=== PATIENT | male | born 1990 | race Caucasian/White ===

== ENCOUNTER 2018-02-01 20:47 | Observation (INO) | payer OTHER, BC ==
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
[2018-02-01] MEDS ORDERED: Sodium Chloride 0.9% 1,000 ML IV SCH ×2 (21:30→23:45)
--- NOTE | 2018-02-01 21:38 | PCM.PREANE ---
Preanesthetic Assessment - Procedure Proposed Procedure: Closed reduction Left Shoulder - Anesthesia/Transfusion/Family Hx Anesthesia History: Prior Anesthesia Without Reaction - Review of Systems General: No Symptoms Pulmonary: No Symptoms Cardiovascular: No Symptoms Gastrointestinal: No Symptoms Neurological: No Symptoms Other: Reports: None - Physical Assessment NPO Status Date: 02/01/18 NPO Status Time: 15:30 O2 Sat by Pulse Oximetry: 93 Respiratory Rate: 19 Vital Signs: Last Vital Signs Temp 97.4 F 02/01/18 20:57 Pulse 82 02/01/18 20:57 Resp 19 02/01/18 20:57 BP 134/75 02/01/18 20:57 Pulse Ox 93 L 02/01/18 20:57 Height: 1.78 m Weight: 106.594 kg ASA Class: 2E Mental Status: Alert & Oriented x3 Airway Class: Mallampati = 1 Dentition: Reports: Normal Dentition Thyro-Mental Finger Breadths: 3 Mouth Opening Finger Breadths: 3 Lungs: Clear to Auscultation Cardiovascular: Regular Rate - Lab Values: Laboratory Last Values WBC 15.15 K/mm3 (4.23-9.07) H 02/01/18 21:07 RBC 4.58 M/mm3 (4.63-6.08) L 02/01/18 21:07 Hgb 12.2 gm/L (13.7-17.5) L 02/01/18 21:07 Hct 37.4 % (40.1-51.0) L 02/01/18 21:07 MCV 81.7 fl (79.0-92.2) 02/01/18 21:07 MCH 26.6 pg (25.7-32.2) 02/01/18 21:07 MCHC 32.6 g/dl (32.2-35.5) 02/01/18 21:07 RDW Std Deviation 41.6 fL (35.1-43.9) 02/01/18 21:07 Plt Count 132 K/mm3 (163-337) L 02/01/18 21:07 MPV 12.3 fl (9.4-12.3) 02/01/18 21:07 - Allergies Allergies/Adverse Reactions: Allergies Allergy/AdvReac Type Severity Reaction Status Date / Time No Known Allergies Allergy Verified 02/01/18 21:04 - Acknowledgements Anesthesia Type Planned: MAC Pt an Appropriate Candidate for the Planned Anesthesia: Yes Alternatives and Risks of Anesthesia Discussed w Pt/Guardian: Yes Pt/Guardian Understands and Agrees with Anesthesia Plan: Yes PreAnesthesia Questionnaire Gastrointestinal History: Reports: GERD Endocrine/Metabolic History: Reports: Obesity/BMI 30+ - Past Surgical History HEENT Surgical History: Reports: Oral Surgery (wisdom teeth extraction) Musculoskeletal Surgical History: Reports: Amputation (left 4h toe), Arthroscopic Knee, Other (See Below) (Right knee arthroscope x 1, open x 2) - SUBSTANCE USE Smoking Status *Q: Current Every Day Smoker Tobacco Use Within Last Twelve Months: Smokeless Tobacco (Chews 1 can/day) Recreational Drug Use History: No - HOME MEDS Home Medications: Home Meds Omeprazole Magnesium [Prilosec Otc] 20 mg PO DAILY 02/01/18 [History] - CURRENT (IN HOUSE) MEDS Current Meds: Current Medications Sodium Chloride (Normal Saline) 1,000 mls @ 150 mls/hr IV ASDIRECTED TR
[2018-02-01] MEDS ORDERED: Propofol 200 MG/20 ML SDV ONE (21:43)
[2018-02-01] MEDS ORDERED: fentaNYL 100 MCG/2 ML SDV ONE (21:43)
[2018-02-01] MEDS ORDERED: Acetaminophen 325 MG Tab PO ONE (22:40)
[2018-02-01] MEDS ORDERED: Acetaminophen 325 MG Tab PO PRN (23:51)
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
[2018-02-02] MEDS: Pantoprazole 40 MG Tab.CR PO SCH ×2 (07:43→08:00)
[2018-02-02] MEDS ORDERED: Sodium Chloride 0.9% 10 ML Syringe FLUSH PRN (09:10)
--- NOTE | 2018-02-02 09:15 | PCM.PN ---
- General Info Date of Service: 02/02/18 - Review of Systems Systems Review Comment:: He had a good night and denies any new problems except for soreness no numbness or tingling vss afebrile anterior thigh--slightly softer able to move the hip with less discomfort the foot is warm CPK did increase IMP no overt sign of compartment syndrome but the cpk did go up will repeat in 6 hours if it has stabilized--home if exam without change i have discussed with Dr. Pozo and he will follow up on this I discussed with the patient and his mother that he is not to drive return to work as per ortho.l THank you Dr. Nagy - Patient Data Vitals - Most Recent: Last Vital Signs Temp 99.0 F 02/02/18 04:11 Pulse 63 02/02/18 04:11 Resp 16 02/02/18 04:11 BP 134/81 02/02/18 04:11 Pulse Ox 99 02/02/18 04:11 Weight - Most Recent: 257 lb 7 oz I&O - Last 24 Hours: Intake & Output 02/01/18 02/02/18 02/02/18 22:59 06:59 14:59 Intake Total 304 Output Total 800 Balance -496 Lab Results Last 24 Hours: Laboratory Results - last 24 hr 02/01/18 02/01/18 02/02/18 Range/Units 21:07 21:07 05:30 WBC 15.15 H 8.99 (4.23-9.07) K/mm3 RBC 4.58 L 4.28 L (4.63-6.08) M/mm3 Hgb 12.2 L 11.5 L (13.7-17.5) gm/L Hct 37.4 L 35.2 L (40.1-51.0) % MCV 81.7 82.2 (79.0-92.2) fl MCH 26.6 26.9 (25.7-32.2) pg MCHC 32.6 32.7 (32.2-35.5) g/dl RDW Std Deviation 41.6 42.6 (35.1-43.9) fL Plt Count 132 L 109 L (163-337) K/mm3 MPV 12.3 12.1 (9.4-12.3) fl Neutrophils % (Manual) 82 H (40-60) % Band Neutrophils % 0 (0-10) % Lymphocytes % (Manual) 13 L (20-40) % Atypical Lymphs % 0 % Monocytes % (Manual) 5 (2-10) % Eosinophils % (Manual) 0 L (0.8-7.0) % Basophils % (Manual) 0 L (0.2-1.2) Platelet Estimate Adequate Plt Morphology Comment Normal RBC Morph Comment Normal Sodium 142 (136-145) mEq/L Potassium 4.6 (3.5-5.1) mEq/L Chloride 109 H (98-107) mEq/L Carbon Dioxide 25 (21-32) mEq/L Anion Gap 12.6 (5-15) BUN 14 (7-18) mg/dL Creatinine 1.1 (0.7-1.3) mg/dL Est Cr Clr Drug Dosing 104.15 mL/min Estimated GFR (MDRD) > 60 (>60) mL/min BUN/Creatinine Ratio 12.7 L (14-18) Glucose 141 H (74-106) mg/dL Calcium 8.1 L (8.5-10.1) mg/dL Total Bilirubin 0.4 (0.2-1.0) mg/dL AST 27 (15-37) U/L ALT 53 (16-63) U/L Alkaline Phosphatase 71 (46-116) U/L Creatine Kinase 592 H (39-308) U/L Total Protein 6.4 (6.4-8.2) g/dl Albumin 3.4 (3.4-5.0) g/dl Globulin 3.0 gm/dL Albumin/Globulin Ratio 1.1 (1-2) 02/02/18 Range/Units 05:30 WBC (4.23-9.07) K/mm3 RBC (4.63-6.08) M/mm3 Hgb (13.7-17.5) gm/L Hct (40.1-51.0) % MCV (79.0-92.2) fl MCH (25.7-32.2) pg MCHC (32.2-35.5) g/dl RDW Std Deviation (35.1-43.9) fL Plt Count (163-337) K/mm3 MPV (9.4-12.3) fl Neutrophils % (Manual) (40-60) % Band Neutrophils % (0-10) % Lymphocytes % (Manual) (20-40) % Atypical Lymphs % % Monocytes % (Manual) (2-10) % Eosinophils % (Manual) (0.8-7.0) % Basophils % (Manual) (0.2-1.2) Platelet Estimate Plt Morphology Comment RBC Morph Comment Sodium (136-145) mEq/L Potassium (3.5-5.1) mEq/L Chloride (98-107) mEq/L Carbon Dioxide (21-32) mEq/L Anion Gap (5-15) BUN (7-18) mg/dL Creatinine (0.7-1.3) mg/dL Est Cr Clr Drug Dosing mL/min Estimated GFR (MDRD) (>60) mL/min BUN/Creatinine Ratio (14-18) Glucose (74-106) mg/dL Calcium (8.5-10.1) mg/dL Total Bilirubin (0.2-1.0) mg/dL AST (15-37) U/L ALT (16-63) U/L Alkaline Phosphatase (46-116) U/L Creatine Kinase 955 H (39-308) U/L Total Protein (6.4-8.2) g/dl Albumin (3.4-5.0) g/dl Globulin gm/dL Albumin/Globulin Ratio (1-2) Med Orders - Current: Current Medications Acetaminophen (Tylenol) 650 mg PO Q6H PRN PRN Reason: Pain Last Admin: 02/02/18 06:01 Dose: 650 mg Sodium Chloride (Normal Saline) 1,000 mls @ 50 mls/hr IV ASDIRECTED [facility] Pantoprazole Sodium (Protonix) 40 mg PO DAILY [facility] Last Admin: 02/02/18 08:00 Dose: Not Given Sodium Chloride (Saline Flush) 10 ml FLUSH ASDIRECTED PRN PRN Reason: Keep Vein Open Discontinued Medications Acetaminophen (Tylenol) 650 mg PO ONETIME ONE Stop: 02/01/18 22:41 Last Admin: 02/01/18 22:44 Dose: 650 mg Fentanyl (Sublimaze) Confirm Administered Dose 100 mcg .ROUTE .STK-MED ONE Stop: 02/01/18 21:44 Sodium Chloride (Normal Saline) 1,000 mls @ 150 mls/hr IV ASDIRECTED [facility] Last Admin: 02/01/18 21:52 Dose: 150 mls/hr Lidocaine HCl (Xylocaine-Mpf 1%) Confirm Administered Dose 5 mls @ as directed .ROUTE .STK-MED ONE Stop: 02/01/18 22:17 Propofol (Diprivan 20 Ml) Confirm Administered Dose 600 mg .ROUTE .STK-MED ONE Stop: 02/01/18 21:44 - Problem List Review Problem List Initiated/Reviewed/Updated: Yes - My Orders Last 24 Hours: My Active Orders 02/01/18 23:03 Patient Status [ADT] Routine 02/01/18 23:45 Sodium Chloride 0.9% [Normal Saline] 1,000 ml IV ASDIRECTED 02/01/18 23:50 Code Status [Resuscitation Status] Routine 02/01/18 23:51 Up With Assistance [RC] BID Acetaminophen [Tylenol] 650 mg PO Q6H PRN 02/01/18 23:52 SCD [Sequential Compression Device] [OM.PC] Routine 02/01/18 23:54 Communication Order [RC] BID 02/02/18 09:00 Pantoprazole [ProTONIX] 40 mg PO DAILY 02/02/18 09:10 Sodium Chloride 0.9% [Saline Flush] 10 ml FLUSH ASDIRECTED PRN Convert IV to Saline Lock [OM.PC] Routine 02/02/18 13:00 CPK [CREATINE KINASE,CK] [CHEM] Timed 02/02/18 Breakfast Regular Diet [DIET]
--- NOTE | 2018-02-02 10:03 | CR ---
Left shoulder: Single AP view of the left shoulder was obtained. Study is suboptimal in positioning as well as technique. No gross abnormality is seen on this limited study. Impression: 1. Findings as noted above. Diagnostic code #2
--- NOTE | 2018-02-02 10:03 | CR ---
Chest: Two views of the chest were obtained. Comparison: No prior chest x-ray. Heart size and mediastinum are normal. Lungs are clear. Bony structures are unremarkable. Impression: 1. Nothing acute is seen on two-view chest x-ray. Diagnostic code #1
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
--- NOTE | 2018-02-02 14:51 | CR ---
Left shoulder: Single axillary view of the left shoulder was obtained. Comparison: Prior left shoulder study of 02/01/18. Glenohumeral alignment appears normal on this exam. No acute finding is seen. Impression: 1. Unremarkable axillary view of the left shoulder. Diagnostic code #1
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
== END 2018-02-02 14:48 | disposition home or self-care (01) ==
LOC: JD.ED 20:47 → JD.MS 23:03
PROVIDERS: ADMIT Surgery; ATTEND Surgery
DX: S43.005A Unspecified dislocation of left shoulder joint, initial encounter (principal); S70.11XA Contusion of right thigh, initial encounter; K21.9 Gastro-esophageal reflux disease without esophagitis; E66.9 Obesity, unspecified; Z68.36 Body mass index [BMI] 36.0-36.9, adult; F17.220 Nicotine dependence, chewing tobacco, uncomplicated; Z79.899 Other long term (current) drug therapy; W40.1XXA Explosion of explosive gases, initial encounter; Y92.65 Oil rig as the place of occurrence of the external cause
CPT/HCPCS: 23655; 36415; 71046; 73020; 80053; 82550; 85007; 85027; 96360; 99285; A9270; J2704; J3010; J7040; 01620